=== PATIENT | female | born 1945 | race Caucasian/White ===

== ENCOUNTER 2017-11-18 18:25 | Emergency (ER) | payer MEDICARE ==
[~2017-11-18] VITALS: Ht 162.6 cm; Wt 72.6 kg
[~2017-11-18 18:25] MED LIST: CENTTAB9 PO; LEVO100T4 PO; LISI-360 PO; PREM0.622 PO; PRIL20CA PO; PROM25SU8 PO
[2017-11-18 18:30] VITALS: BP 173/76; PULSE 90; RESP 16; TEMP 98.6; O2SAT 97
[2017-11-18] MEDS ORDERED: ESTR.625 PO (18:45)
[2017-11-18] MEDS ORDERED: OMEP20TA93 PO (18:45)
[2017-11-18] MEDS ORDERED: LISI10TA3 PO (18:45)
[2017-11-18] MEDS ORDERED: MULTTAB67 PO (18:45)
[2017-11-18] MEDS ORDERED: LEVO100T5 PO (18:45)
[2017-11-18] MEDS ORDERED: BENZ1CAP51 PO (18:50)
[2017-11-18] MEDS ORDERED: PRED20 PO (18:50)
[2017-11-18] MEDS ORDERED: ZITHTAB PO (18:50)
--- NOTE | 2017-11-18 18:51 | PD ---
HPI Chief Complaint: Cold / Flu Symptoms Time Seen by Provider: 18:39 Travel History International Travel<30 days: No Contact w/Intl Traveler<30days: No Traveled to known affect area: No History of Present Illness HPI 72-year-old female presents to the emergency department for evaluation of cough and congestion that started 3 days ago. She also reports a headache from coughing. Patient is currently 7/10, aching, without radiation. Patient denies any fevers or chills. No vomiting. Her was recently diagnosed with bronchitis with similar symptoms. He is currently on ciprofloxacin. Patient denies any other complaints at this time. No exacerbating or alleviating factors. Moderate severity. PFSH Past Medical History Hx Anticoagulant Therapy: No Arthritis: No Asthma: No Autoimmune Disease: No Heart Rhythm Problems: No Cancer: No Cardiovascular Problems: Yes (HTN) High Cholesterol: No Chest Pain: No Congestive Heart Failure: No COPD: No Cerebrovascular Accident: No Diabetes: No Diminished Hearing: No Diverticulitis: Yes Endocrine: No Gastrointestinal Disorders: Yes (DIVERTICULOSIS, GERD) GERD: Yes Glaucoma: No Gout: Yes Genitourinary: No Headaches: No Hepatitis: No Hiatal Hernia: Yes Hypertension: Yes Immune Disorder: No Kidney Stones: No Neurologic: No Psychiatric: No Reproductive: No Respiratory: No Myocardial Infarction: No Renal Failure: No Seizures: No Sleep Apnea: No Thyroid Disease: Yes (HYPO) Ulcer: No PNEUMOCCOCAL Vaccine (Year): 2 ?: Not Menopausal: Yes Tubal Ligation: Yes Past Surgical History Abdominal Surgery: No AICD: No Body Medical Devices: NONE Cardiac Surgery: No Ear Surgery: No Endocrine Surgery: No Eye Surgery: Yes ("lasik,mono vision") Genitourinary Surgery: No Gynecologic Surgery: Yes (TL, HYSTERECTOMY) Hysterectomy: Yes Joint Replacement: Yes (lt knee) Neurologic Surgery: No Oral Surgery: No Pacemaker: No Thoracic Surgery: No Other Surgery: Yes Social History Alcohol Use: No Tobacco Use: No Substance Use: No Allergies-Medications (Allergen,Severity, Reaction): Coded Allergies: aspirin (Unverified Adverse Reaction, Severe, "stomach perez", 11/18/17) Reported Meds & Prescriptions Reported Meds & Active Scripts Active Reported Omeprazole 20 Mg Tab 20 Mg PO DAILY Multiple Vitamin 1 Tab 1 Tab PO DAILY Lisinopril 10 Mg Tab 10 Mg PO DAILY Levothyroxine (Levothyroxine Sodium) 100 Mcg Tab 100 Mcg PO DAILY Premarin (Estrogens Conjugated) 0.625 Mg Tab 0.625 Mg PO DAILY Review of Systems Except as stated in HPI: all other systems reviewed are Neg Physical Exam Narrative GENERAL: Well-nourished, well-developed female patient, ambulatory. Afebrile. SKIN: Focused skin assessment warm/dry. HEAD: Normocephalic. Atraumatic. EYES: No scleral icterus. No injection or drainage. NECK: Supple, trachea midline. No JVD or lymphadenopathy. CARDIOVASCULAR: Regular rate and rhythm without murmurs, gallops, or rubs. RESPIRATORY: Breath sounds equal bilaterally. No accessory muscle use. Lungs sounds are clear to auscultation. GASTROINTESTINAL: Abdomen soft, non-tender, nondistended. MUSCULOSKELETAL: No cyanosis, or edema. BACK: Nontender without obvious deformity. No CVA tenderness. Data Data Last Documented VS Vital Signs Date Time Temp Pulse Resp B/P (MAP) Pulse Ox O2 Delivery O2 Flow Rate FiO2 11/18/17 18:30 98.6 90 16 173/76 (108) 97 MDM Medical Decision Making Medical Screen Exam Complete: Yes Emergency Medical Condition: Yes Medical Record Reviewed: Yes Differential Diagnosis URI versus bronchitis versus pneumonia Narrative Course 72-year-old female presents to the emergency department for evaluation of cough and congestion for 3 days. Dry cough is noted. Patient will be discharged prescription for azithromycin, prednisone, benzonatate capsules. She is encouraged to follow-up with her primary care physician or return here for any acute worsening of symptoms. The patient was discharged in stable condition with instructions, including return instructions and follow up instructions. Diagnosis Primary Impression: Upper respiratory infection Qualified Codes: J06.9 - Acute upper respiratory infection, unspecified Referrals: Primary Care Physician call for appointment Patient Instructions: General Instructions, Upper Respiratory Infection (ED) Additional Instructions: Take antibiotic as directed until gone. Take prednisone as directed. Take benzonatate capsules as directed as needed for cough. Follow-up with your primary care physician. Return to the emergency department for any acute worsening of symptoms. Med/Other Pt SpecificInfo: Prescription(s) given Scripts Benzonatate (Benzonatate) 200 Mg Cap 200 MG PO TID Y for COUGH, #21 CAP 0 Refills Prov: Albania Villarreal 11/18/17 Prednisone (Prednisone) 20 Mg Tab 40 MG PO DAILY for 5 Days, #10 TAB 0 Refills Take 40 mg (2 tablets) daily for 5 days Prov: [place]ia Villarreal 11/18/17 Azithromycin (Zithromax Z-Duane) 250 Mg Dspk 250 MG PO DIRECTED for Infection, #1 DSPK 0 Refills 500 MG (2 tabs) day 1, then 1 tab days 2-5. Prov: Albania Villarreal 11/18/17 Disposition: 01 DISCHARGE HOME Condition: Stable Albania Villarreal Nov 18, 2017 18:51
== END 2017-11-18 18:58 | disposition home or self-care (01) ==
LOC: PHEFT 18:25
DX: J06.9 Acute upper respiratory infection, unspecified (principal); R05 Cough; R51 Headache; I10 Essential (primary) hypertension; K21.9 Gastro-esophageal reflux disease without esophagitis; E07.9 Disorder of thyroid, unspecified; Z87.39 Personal history of other diseases of the musculoskeletal system and connective tissue; Z87.19 Personal history of other diseases of the digestive system
CPT/HCPCS: 99284